=== PATIENT | female | born 1965 | race Caucasian/White ===

== ENCOUNTER 2019-06-25 03:47 | Emergency (ER) | payer MEDICAID, OTHER ==
[~2019-06-25] VITALS: Ht 154.9 cm; Wt 71.0 kg
[2019-06-25] MEDS ORDERED: AZITHROMYCIN 500 MG TABLET PO ONE (07:30)
[2019-06-25] MEDS ORDERED: CEFTRIAXONE SODIUM 250 MG/VIAL IM ONE (07:30)
[2019-06-25] MEDS ORDERED: LIDOCAINE HCL 1% 20ML VIAL (Pyxis) INJ INFIL ONE (07:45)
[2019-06-25 08:37] LABS: CLARITY URINE CLEAR (CLEAR); COLOR URINE YELLOW (YELLOW); KETONES URINE NEGATIVE (NEGATIVE); LEUKOCYTE ESTERASE URINE NEGATIVE (NEGATIVE); NITRITE URINE NEGATIVE (NEGATIVE); OCCULT BLOOD URINE 1+ (NEGATIVE); PROTEIN URINE NEGATIVE (NEGATIVE); UROBILINOGEN URINE 0.2 E.U./dL (0.2-1.0)
[2019-06-25 10:22] LABS: BASOPHILS % 0.9 % (0.0-2.0); EOSINOPHILS % 2.1 % (0.0-5.0); HEMATOCRIT. 41.4 % (36.0-48.0); HEMOGLOBIN. 14.2 g/dL (12.0-16.0); LYMPHOCYTES % 24.7 % (20.0-50.0); MEAN CORPUSCULAR HEMOGLOBIN 29.1 pg (28.0-32.0); MEAN CORPUSCULAR VOLUME 85.1 fL (81.0-99.0); MEAN PLATELET VOLUME 7.9 fl (7.4-10.4); MONOCYTES % 6.3 % (2.0-8.0); PLATELET 344 x1000/uL (130-400); RED BLOOD CELL COUNT 4.87 mill/uL (4.2-5.4); RED CELL DISTRIBUTION WIDTH 13.5 % (11.6-14.6)
[2019-06-25 10:30] LABS: CHLORIDE 107 mEq/L (98-107)
[2019-06-25 14:31] VITALS: BP 106/81
[2019-06-27 04:07] LABS: NEISSERIA GONORRHOEAE NAA Negative (Negative)
== END 2019-06-25 14:34 | disposition home or self-care (01) ==
LOC: ER 03:47
DX: N76.0 Acute vaginitis (principal)
CPT/HCPCS: 36415; 76830; 76856; 80053; 81003; 85025; 87210; 87491; 87591; 96372; 99285; J0696; J3490

== ENCOUNTER 2019-08-15 01:01 | Emergency (ER) | payer MEDICAID ==
[~2019-08-15] VITALS: Ht 139.7 cm; Wt 61.0 kg
[2019-08-15] MEDS ORDERED: IBUPROFEN 600MG TABLET PO ONE (02:15)
[2019-08-15 02:39] LABS: BASOPHILS % 0.9 % (0.0-2.0); HEMATOCRIT. 39.3 % (36.0-48.0); HEMOGLOBIN. 13.3 g/dL (12.0-16.0); LYMPHOCYTES % 41.3 % (20.0-50.0); MEAN CORPUSCULAR HEMOGLOBIN 28.9 pg (28.0-32.0); MEAN CORPUSCULAR VOLUME 85.4 fL (81.0-99.0); MEAN PLATELET VOLUME 8.2 fl (7.4-10.4); MONOCYTES % 6.7 % (2.0-8.0); NEUTROPHILS % 47.1 % (40.0-76.0); PLATELET 304 x1000/uL (130-400); RED CELL DISTRIBUTION WIDTH 13.7 % (11.6-14.6)
[2019-08-15 02:45] LABS: CHLORIDE 107 mEq/L (98-107)
[2019-08-15 04:17] LABS: CLARITY URINE CLEAR (CLEAR); COLOR URINE YELLOW (YELLOW); KETONES URINE NEGATIVE (NEGATIVE); LEUKOCYTE ESTERASE URINE NEGATIVE (NEGATIVE); NITRITE URINE NEGATIVE (NEGATIVE); OCCULT BLOOD URINE TRACE (NEGATIVE); PH URINE 5.5 (4.5-8.0); PROTEIN URINE NEGATIVE (NEGATIVE); SPECIFIC GRAVITY URINE 1.013 (1.005-1.030); UROBILINOGEN URINE 0.2 E.U./dL (0.2-1.0)
[2019-08-15 05:04] VITALS: BP 120/60
== END 2019-08-15 05:05 | disposition home or self-care (01) ==
LOC: ER 01:01
DX: R10.2 Pelvic and perineal pain (principal); N88.8 Other specified noninflammatory disorders of cervix uteri
CPT/HCPCS: 36415; 76830; 76856; 80053; 81003; 85025; 87210; 99284